=== PATIENT | male | born 1960 | race Caucasian/White ===

== ENCOUNTER 2021-07-04 06:06 | Day surgery (SDC) | payer OTHER ==
[~2021-07-04] VITALS: Ht 172.7 cm; Wt 104.3 kg
[~2021-07-04 06:06] MED LIST: HYD2I IM; MULT1CAP35 PO; TRAM50TA2 PO; ZOLP10TA6 PO
[2021-07-04] MEDS ORDERED: ceFAZolin 1GM/50ML 100 ML IV ONE (06:55)
[2021-07-04] MEDS ORDERED: LIDOCAINE 1%-Mpf/Epinephrine 1:200,000 ONE (07:25)
[2021-07-04] MEDS ORDERED: BUPIVACAINE 0.25% INJ 50ML VIAL ONE (07:25)
[2021-07-04] MEDS ORDERED: VANCOMYCIN HCL 1000 MG VL ONE (07:26)
[2021-07-04] MEDS ORDERED: fentaNYL CITRATE 5 ML ONE (07:36)
[2021-07-04] MEDS ORDERED: MIDAZOLAM HCL 2MG/2ML 2ml VIAL (1mg/ml) ONE (07:36)
[2021-07-04] MEDS ORDERED: LIDOCAINE 2% (LOCAL ANESTH.) PF 5ml SDV ONE (07:41)
[2021-07-04] MEDS ORDERED: PROPOFOL 10 MG/ML 20 ML IV ONE ×2 (07:41→08:31)
[2021-07-04] MEDS ORDERED: ONDANSETRON HCL 4 MG/2 ML VIAL ONE (07:41)
[2021-07-04] MEDS ORDERED: HYDROmorphone HCL 2 MG/ML VL ONE (07:44)
[2021-07-04] MEDS ORDERED: ONDANSETRON HCL 4 MG/2 ML VIAL IV PRN (08:30)
[2021-07-04] MEDS: HYDROmorphone HCL 2 MG/ML VL IV PRN ×2 (09:20→09:38)
[2021-07-04 10:00] VITALS: BP 117/65
== END 2021-07-04 10:10 | disposition home or self-care (01) ==
LOC: SUR 06:06
PROVIDERS: ATTEND Anesthesiology Pain Medicine
DX: M54.5 Low back pain (principal); Z45.49 Encounter for adjustment and management of other implanted nervous system device; M51.16 Intervertebral disc disorders with radiculopathy, lumbar region; M48.061 Spinal stenosis, lumbar region without neurogenic claudication; M51.36 Other intervertebral disc degeneration, lumbar region; G47.00 Insomnia, unspecified; J45.909 Unspecified asthma, uncomplicated; Z98.890 Other specified postprocedural states; Z79.899 Other long term (current) drug therapy; Z20.822 Contact with and (suspected) exposure to COVID-19
CPT/HCPCS: 62362; 62370; C1772; J0690; J1170; J2001; J2250; J2405; J2704; J3010; J3370; J3490; U0003

== ENCOUNTER 2025-05-23 17:30 | Inpatient (IN) | payer OTHER ==
[~2025-05-23] VITALS: Ht 175.3 cm; Wt 93.1 kg
--- NOTE | 2025-05-23 17:51 | ED.PDOC ---
HPI (NEURO) HPI Comments 64-year-old male brought in by EMS presents with a chief complaint of accidental overdose to Dilaudid through his Dilaudid pump in his abdominal wall. Per EMS, patients called 911 after finding patient in bed with AMS. Patient was given 2mg of Narcan by EMS and is now alert and able to speak and answer questions. Patient reports that his Dilaudid pump in his right abdomen was refilled this morning at his Pain Management facility. Patient reports that one time before in the past, his pump leaked and he had the same symptoms as he did today and was prescribed Narcan by his doctor. Patient states that although the Narcan has helped him, he still is experiencing dry mouth and some slight lightheadedness. Patient mentions that his Dilaudid pump is refilled every 2 months. Patient has a prescription of Narcan but he has not used it yet. PMHx: Chronic Back Pain PSHx: Left Shoulder Repair, Right Shoulder Repair HPI: Poor Historian. REVIEW OF SYSTEMS: All symptoms have resolved prior to my evaluation CONSTITUTIONAL: Denies acute: fever, diaphoresis, chills, generalized weakness. HEAD: Denies acute: headache, photophobia Eyes: Denies acute: Double vision, vision loss, eye pain, eye discharge. EARS: Denies acute: tinnitus, hearing loss, ear discharge, ear pain, THROAT: Denies acute: sore throat, swelling, difficulty swallowing , pain with swallowing, change in voice. NECK: Denies acute: neck pain, neck swelling, stiff neck. HEART: Denies acute : chest pain, palpitations, LUNGS: Denies acute: SOB, wheezing, cough, hemoptysis ABDOMEN: Denies acute: abdominal pain, Nausea, Vomiting, diarrhea, melena , hematemesis, hematochezia SKIN: Denies acute: rash, redness, lesions, itchiness. EXTREMITIES: Denies acute: calf pain, numbness, tingling, weakness, denies pain in extremity. Denies acute: Low back pain. Neuro: Denies acute: focal neurological deficit, motor or sensory focal neurological deficit, tremors, seizure like activity, confusion, dizziness, change in mental status, loss of bowel or bladder function, cauda equina like symptoms. : Denies acute: dysuria, hematuria, flank pain, increase in urinary frequency. PSYCH: Denies acute: hallucination, suicidal ideation, homicidal ideation. PHYSICAL EXAM: General: ----no----acute distress, awake and alert. Head: normocephalic, atraumatic. Neck: supple, trachea is midline, no swelling. Throat: Normal phonation. Eyes:, no erythema, no purulent discharge, no proptosis, no icterus. Heart: regular rate, regular rhythm, no significant murmur appreciated. Lungs: no apparent respiratory distress, Able to speak in full sentences. No wheezing, no rhonchi, no crackles. No stridors Clear to auscultation bilaterally. Abdomen: non tender to palpation, non distended, soft, no guarding, no rebound, + bowel sounds. Neuro: Awake, Alert, oriented to name, self, situation, follows commands GCS=15. Speech is normal. Skin: no petechia, no purpura, no cyanosis, non-pale, not jaundice. Lower extremities: --no - Pitting edema no deformity, no focal swelling, no calf TTP. Makes eye contact. moves all four extremities. Face: no apparent facial droop. ED COURSE: DISCLAIMER: This medical document was created using an electronic medical record system with voice recognition software and computerized dictation system. Although this document has been carefully reviewed, there might still be some phonetic and t ypographical errors. Occasional wrong-word or "sound-alike" substitutions may have occurred due to the inherent limitations of voice recognition software. These areas are purely typographical due to imperfections of the software programs and do not reflect any compromise in the patient's medical care. Please read the chart carefully and recognize, using context, where these substitutions have occurred. Time Seen by MD: 17:36 Reviewed Notes: Medications, Allergies Information Source: Patient, Emergency Med Personnel Mode of Arrival: EMS Past Medical History Past Medical History (Other): CHRONIC BACK PAIN Family History Family History: Reviewed,noncontributory to illness Social History Smoker: Non-Smoker Alcohol: Denies ETOH Use Drugs: Denies Drug Use Lives In: Home Was a procedure done? Was a procedure done?: No Differential Diagnosis (SZ) Seizure: N/A General Weakness: Anemia, CVA, Dehydration, Dysrhythmia, Electrolyte imbalance, Encephalopathy, Guillain-Valmeyer, Hypoglycemia, Hypotension, Hypovolemia, Labyrinthitis, Meniere's disease, Myasthenia gravis, Myocardial infarction, Pulmonary embolus, Renal failure, Repiratory failure, TIA, VBI, Vertigo: central, Vertigo: peripheral, Vestibular neuronitis X-Ray, Labs, Meds, VS Vital Signs Date Time Temp Pulse Resp B/P (MAP) Pulse Ox O2 Delivery O2 Flow Rate FiO2 05/23/25 17:45 98.2 95 17 145/90 96 98.2 Lab Test 05/23/25 19:42 05/23/25 18:45 05/23/25 17:53 Range/Units Troponin I High Sensitivity < 3 L < 3 L </=54 ng/L White Blood Count 10.0 4.4-10.8 10^3/uL Red Blood Count 5.02 4.5-5.90 10^6/uL Hemoglobin 11.6 L 13.5-17.5 g/dL Hematocrit 36.0 L 41.0-53.0 % Mean Corpuscular Volume 71.7 L 80.0-100.0 fL Mean Corpuscular Hemoglobin 23.1 L 28.0-32.0 pg Mean Corpuscular Hemoglobin Concent 32.2 32.0-36.0 g/dL Red Cell Distribution Width 15.7 H 11.8-14.3 % Platelet Count 318 140-450 10^3/uL Mean Platelet Volume 7.5 6.9-10.8 fL Neutrophils (%) (Auto) 94.4 H 37.0-80.0 % Lymphocytes (%) (Auto) 3.5 L 10.0-50.0 % Monocytes (%) (Auto) 1.8 0.0-12.0 % Eosinophils (%) (Auto) 0.0 0.0-7.0 % Basophils (%) (Auto) 0.3 0.0-2.0 % Neutrophils # (Auto) 9.4 H 1.6-8.6 10 ^3/uL Lymphocytes # (Auto) 0.4 0.4-5.4 10 ^3/uL Monocytes # (Auto) 0.2 0-1.3 10 ^3/uL Eosinophils # (Auto) 0 0-0.8 10 ^3/uL Basophils # (Auto) 0 0-0.2 10 ^3/uL Nucleated Red Blood Cells 0.0 % Sodium Level 137 136-145 mmol/L Potassium Level 4.9 3.5-5.1 mmol/L Chloride Level 105 98-107 mmol/L Carbon Dioxide Level 23 20-31 mmol/L Anion Gap 9 5-15 Blood Urea Nitrogen 18 9-23 mg/dL Creatinine 1.14 0.700-1.30 mg/dL Glomerular Filtration Rate Calc 73 >90 mL/min BUN/Creatinine Ratio 15.8 10.0-20.0 Serum Glucose 163 H 74-106 mg/dL Lactic Acid Level 1.9 0.4-2.0 mmol/L Calcium Level 9.3 8.7-10.4 mg/dL Total Bilirubin 0.5 0.2-1.0 mg/dL Aspartate Amino Transferase (AST) 29 13-40 U/L Alanine Aminotransferase (ALT) 36 7-40 U/L Alkaline Phosphatase 77 46-116 U/L B-Type Natriuretic Peptide 39.66 0-100 pg/mL Total Protein 6.9 5.7-8.2 g/dL Albumin 4.5 3.2-4.8 g/dL POC Glucose 175 H 70-106 mg/dl PATIENT: BRYANT LOPEZ JACCT: [id number]: [id number] : 1960 LOC: ER ROOM / BED: / AGE / SEX: 64 / M ADM STATUS: REG ER SERVICE 46 ORDERING PHYSICIAN: JARED MOE DO PROCEDURE(s): CXRP - CHEST PORTABLE REASON: sob/ ORDER NUMBER(s): [id number], ACCESSION NUMBER(s): [id number] CHEST RADIOGRAPH Indication: sob/ Technique: Single frontal view of the chest was obtained Comparison: None FINDINGS: Lines and Tubes: None Lungs: No focal consolidation. Pleura: No effusion. No pneumothorax. Cardiomediastinal contours: Unremarkable Bones: No acute osseous abnormality. IMPRESSION: 1. No acute cardiopulmonary disease. HS:Y ATED BY: PRETTY LUIS Jr., DO DICTATED DATE/TIME: 05/23/251908 SIGNED BY: PRETTY LUIS Jr., DO SIGNED DATE/TIME: 05/23/251908 Time of 1ST Reevaluation: 18:06 Reevaluation 1ST: Unchanged Time of 2ND Reevaluation: 22:11 (The case was discussed with the admitting team (HPI, physical exam, labs and diagnostic tests that were available at the time of disposition, ED course, treatment plan) on the phone. They agreed to come and evaluate the patient and make the appropriate disposition. I recommended admission to the hospital for observation to make sure he does not collapse until we rule out male functioning of the Dilaudid pump. He may require a Narcan drip. 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 ) Patient Education/Counseling: Diagnosis, Treatment Family Education/Counseling: Diagnosis, Treatment Comments MDM: patient presented with the above HPI.--altered level of consciousness----workup was initiated. patient was found with the above mentioned diagnosis. the following medications were ordered: please refer to order lists of meds and tests obtained by myself Dr. Moe. Patient ED course and VS have been stabilized. Patient has been reassessed in the ED and remained in a stable condition. Pertinent incidental findings were discussed with the patient and/or family. Patient/family voices understanding and is agreeable with plan. Patient has been observed in the ED adequate length of time to insure improvement/stability. Escalation of care considered: Consideration of escalation to observation or admission Patient is likely getting a higher doses of Dilaudid since his recent pump refill. Patient required at least two doses of Narcan to returned to his baseline. Patient was ADMITTED to the medicine team for further evaluation and treatment of their presentation. All the reports of any imaging studies that were ordered by myself were reviewed by myself. 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 Electronically submitted by Nii Coleman ([email or web address]). I personally scribed for JARED MOE DO ([email or web address]) on 05/23/25 at 19:22. Electronically submitted by Nii Coleman ([email or web address]). JARED MOE DO May 23, 2025 17:50
[2025-05-23] MEDS: SODIUM CHLORIDE 0.9% 1,000 ML IV ONE (18:47)
[2025-05-23] MEDS: ONDANSETRON HCL 4 MG/2 ML VIAL IV ONE (18:55)
[2025-05-23 19:10] LABS: Hematocrit 36.0 % (41.0-53.0); Hemoglobin 11.6 g/dL (13.5-17.5); Mean Corpuscular Hemoglobin 23.1 pg (28.0-32.0); Mean Corpuscular Volume 71.7 fL (80.0-100.0); Nucleated Red Blood Cells % 0.0 %
--- NOTE | 2025-05-23 19:10 | DVH ---
CHEST RADIOGRAPH Indication: sob/ Technique: Single frontal view of the chest was obtained Comparison: None FINDINGS: Lines and Tubes: None Lungs: No focal consolidation. Pleura: No effusion. No pneumothorax. Cardiomediastinal contours: Unremarkable Bones: No acute osseous abnormality. IMPRESSION: 1. No acute cardiopulmonary disease. HS:Y
[2025-05-23] MEDS: NALOXONE HCL 1MG/ML 2ML SYRINGE IV ONE (19:15)
[2025-05-23 19:29] LABS: Alanine Aminotransferase 36 U/L (7-40); Albumin 4.5 g/dL (3.2-4.8); Alkaline Phosphatase 77 U/L (46-116); Anion Gap 9 (5-15); BUN/Creatinine Ratio 15.8 (10.0-20.0); Blood Urea Nitrogen 18 mg/dL (9-23); Calcium 9.3 mg/dL (8.7-10.4); Carbon Dioxide 23 mmol/L (20-31); Chloride 105 mmol/L (98-107); Potassium 4.9 mmol/L (3.5-5.1); Sodium 137 mmol/L (136-145); Total Protein 6.9 g/dL (5.7-8.2)
[2025-05-23 19:30] LABS: Bilirubin, Total 0.5 mg/dL (0.2-1.0)
[2025-05-23 19:34] LABS: Glucose 163 mg/dL (74-106)
[2025-05-23] MEDS ORDERED: DOCUSATE SOD 100 MG CAP PO PRN (23:15)
[2025-05-23] MEDS ORDERED: ONDANSETRON HCL 4 MG/2 ML VIAL IV PRN (23:15)
[2025-05-23] MEDS ORDERED: ACETAMINOPHEN 325 MG TAB PO PRN (23:15)
[2025-05-23] MEDS ORDERED: MORPHINE SULFATE INJ 2 MG/ml SYRG IV PRN (23:15)
[2025-05-23] MEDS ORDERED: NITROGLYCERIN 0.4 MG SL TAB SL PRN (23:15)
[2025-05-24] VITALS (8 sets, daily range): BP systolic 99–145; BP diastolic 47–90; PULSE 47–72; RESP 10–18; TEMP 98.8; O2SAT 95–99
[2025-05-24] MEDS: SODIUM CHLORIDE 0.9% 1,000 ML IV SCH (00:54)
--- NOTE | 2025-05-24 01:17 | DVHHP2 ---
SHAUNA HASSAN SOLUTION MAKER 05/24/25 0117: History of Present Illness Reason for Visit: Opiate overdose History of Present Illness 64-year-old male with past medical history of chronic back pain, permanent pain pump implant infusing Dilaudid presents with complaints of altered mental status x1 day. Patient endorsed he had his pain pump refill today with Dilaudid, which occurs every 2 months. Pain pump was refilled by pain management Dr. Sy gallegos. Patient endorses it was normal procedure no changes made to his dosing. When he arrived home he was not feeling well waiting for his to come home. She noted him to be acting abnormal. Breathing was abnormal. Which prompted the to call EMS. EN route to the hospital EMS gave him 2 doses of Narcan. Which improved mentation. Once arrived in the emergency department was given another dose of Narcan. At this time patient states he still feels off. Patient's endorses pinpoint pupils are not normal for the patient. During the emergency department evaluation CBC is unremarkable, CMP was unremarkable checks x-ray had no acute cardiopulmonary disease. At this time patient denies fevers, chills, dizziness, syncope, shortness of breath, chest pain, palpitations, leg swelling. Musculoskeletal: Chronic low back pain Smoke: No ALCOHOL: none Drugs: None Lives: with Family Review of Systems Constitutional: Yes: Weakness; No: Fever, Chills, Sweats, Malaise, Other Eyes: No: Pain, Vision change, Conjunctivae inflammation, Eyelid inflammation, Other, Redness ENT: No: Ear pain, Ear discharge, Nose pain, Nose discharge, Nose congestion, Mouth pain, Mouth swelling, Throat pain, Throat swelling, Other Respiratory: No: Cough, Dry, Shortness of breath, SOB with excertion, Wheezing, Hemoptysis, Pleuritic Pain, Sputum, Wheezing, Other Cardiovascular: No: Chest Pain, Palpitations, Orthopnea, Paroxysmal Noc. Dyspnea, Edema, Lt Headedness, Other Gastrointestinal: Nausea; No: Vomiting, Abdominal Pain, Diarrhea, Constipation, Melena, Hematochezia, Other Genitourinary: No Dysuria, No Frequency, No Incontinence, No Hematuria, No Retention, No Other Musculoskeletal: No: other, neck pain, shoulder pain, arm pain, back pain, hand pain, leg pain, foot pain Neurological: Incoordination; No: Weakness, Numbness, Change in speech, Confusion, Seizures, Other Allergies: Coded Allergies: Hydrocodone (Verified Allergy, Unknown, 05/23/25) Medications Current Medications Medications Dose Ordered Sig/Symone Route Start Time Stop Time Status Last Admin Dose Admin Sodium Chloride 1,000 ml @ 100 mls/hr Q10H IV 05/23/25 23:15 Docusate Sodium 100 mg BIDPRN PRN PO 05/23/25 23:15 Acetaminophen 650 mg Q6HP PRN PO 05/23/25 23:15 UNV Ondansetron HCl 4 mg Q4HP PRN IV 05/23/25 23:15 Enoxaparin Sodium 40 mg DAILY SC 05/24/25 10:00 Nitroglycerin 0.4 mg Q5MINP PRN SL 05/23/25 23:15 Morphine Sulfate 2 mg Q30M PRN IV 05/23/25 23:15 UNV Naloxone HCl 0.4 mg Q1HP PRN IV 05/23/25 23:15 Exam Vital Signs Vital Signs Date Time Temp Pulse Resp B/P (MAP) Pulse Ox O2 Delivery O2 Flow Rate FiO2 05/23/25 17:45 98.2 95 17 145/90 96 98.2 General Appearance: Alert, Oriented X3, Cooperative, mild distress HEENT: Atraumatic, EOMI, Other (Pinpoint pupils bilaterally 3 mm) Respiratory: Clear to auscultation, Normal air movement Cardiovascular: Regular rate, Normal S1, Normal S2 Abdominal: Normal bowel sounds, Soft, No tenderness Extremities: No clubbing, No cyanosis, No edema, Normal pulses Skin: No rashes Neuro: Normal speech, Strength at 5/5 X4 ext Psych/Mental Status: Mental status NL, Mood NL Labs/Xrays Labs Test 05/23/25 19:42 05/23/25 18:45 05/23/25 17:53 Range/Units Troponin I High Sensitivity < 3 L </=54 ng/L White Blood Count 10.0 4.4-10.8 10^3/uL Red Blood Count 5.02 4.5-5.90 10^6/uL Hemoglobin 11.6 L 13.5-17.5 g/dL Hematocrit 36.0 L 41.0-53.0 % Mean Corpuscular Volume 71.7 L 80.0-100.0 fL Mean Corpuscular Hemoglobin 23.1 L 28.0-32.0 pg Mean Corpuscular Hemoglobin Concent 32.2 32.0-36.0 g/dL Red Cell Distribution Width 15.7 H 11.8-14.3 % Platelet Count 318 140-450 10^3/uL Mean Platelet Volume 7.5 6.9-10.8 fL Neutrophils (%) (Auto) 94.4 H 37.0-80.0 % Lymphocytes (%) (Auto) 3.5 L 10.0-50.0 % Monocytes (%) (Auto) 1.8 0.0-12.0 % Eosinophils (%) (Auto) 0.0 0.0-7.0 % Basophils (%) (Auto) 0.3 0.0-2.0 % Neutrophils # (Auto) 9.4 H 1.6-8.6 10 ^3/uL Lymphocytes # (Auto) 0.4 0.4-5.4 10 ^3/uL Monocytes # (Auto) 0.2 0-1.3 10 ^3/uL Eosinophils # (Auto) 0 0-0.8 10 ^3/uL Basophils # (Auto) 0 0-0.2 10 ^3/uL Nucleated Red Blood Cells 0.0 % Sodium Level 137 136-145 mmol/L Potassium Level 4.9 3.5-5.1 mmol/L Chloride Level 105 98-107 mmol/L Carbon Dioxide Level 23 20-31 mmol/L Anion Gap 9 5-15 Blood Urea Nitrogen 18 9-23 mg/dL Creatinine 1.14 0.700-1.30 mg/dL Glomerular Filtration Rate Calc 73 >90 mL/min BUN/Creatinine Ratio 15.8 10.0-20.0 Serum Glucose 163 H 74-106 mg/dL Lactic Acid Level 1.9 0.4-2.0 mmol/L Calcium Level 9.3 8.7-10.4 mg/dL Total Bilirubin 0.5 0.2-1.0 mg/dL Aspartate Amino Transferase (AST) 29 13-40 U/L Alanine Aminotransferase (ALT) 36 7-40 U/L Alkaline Phosphatase 77 46-116 U/L B-Type Natriuretic Peptide 39.66 0-100 pg/mL Total Protein 6.9 5.7-8.2 g/dL Albumin 4.5 3.2-4.8 g/dL POC Glucose 175 H 70-106 mg/dl SEPSIS Sepsis Screen Date sepsis recognized/suspect: May 23, 2025 Time Sepsis recognized/suspect: 1744 Recent Procedure: No On Antibiotic Therapy: No Respiratory Rate >20: No Heart Rate >90: Yes Temp<36 C (96.8 F) or >38.3 C: No SBP <90 or MAP <65 mmHG: No New Acute Mental Status Change: No Is the patient on CPAP, BIPAP,: No Physician Orders Surgical Specialist (05/23/25 ) Urinalysis (05/23/25 17:44) Chest Portable (05/23/25 17:47) Electrocardigram (05/23/25 17:44) Admit (05/23/25 23:13) Code Status (05/23/25 23:13) Vital Signs .PER UNIT PROTOCOL (05/23/25 23:13) Review Orders With Adm.Md (05/23/25 23:13) Encourage Activity As Tolerate (05/23/25 23:13) Consistent Carb(Ccho)Diabetes (05/24/25 Breakfast) Sodium Chloride 0.9% (05/23/25 23:15) Oxygen By Face Mask (05/23/25 23:13) Docusate Sodium Capsule (Colace Capsule) (05/23/25 23:15) Acetaminophen Tablet (Tylenol Tablet) (05/23/25 23:15) Notify Md Of Changes From Base (05/23/25 23:13) Advance Directive (05/23/25 23:13) Basic Metabolic Panel (05/24/25 05:00) Basic Metabolic Panel (05/25/25 05:00) Basic Metabolic Panel (05/26/25 05:00) Complete Blood Count (05/24/25 05:00) Complete Blood Count (05/25/25 05:00) Complete Blood Count (05/26/25 05:00) Patient Condition (05/23/25 23:13) Allergies (05/23/25 23:13) Ondansetron Hcl (Zofran) (05/23/25 23:15) Enoxaparin Sodium (Lovenox) (05/24/25 10:00) Nitroglycerin Sublingual (Ntrostat Subli (05/23/25 23:15) Morphine Sulfate Injection (05/23/25 23:15) Stat Ekg For Chest Pain (05/23/25 23:13) Notify Md Of Changes From Base (05/23/25 23:13) Check Out Clerk For 24 Hours (05/23/25 23:13) Emergency Dysrhythmia Protocol (05/23/25 23:13) Rhythm Strips Once Every Shift (05/23/25 23:13) Oxygen By Nasal Cannula (05/23/25 23:13) * Pain Managment Consult (05/23/25 23:13) Communication Order (05/23/25 23:13) Naloxone Hcl (Narcan) (05/23/25 23:15) Vital Signs Date Time Temp Pulse Resp B/P (MAP) Pulse Ox O2 Delivery O2 Flow Rate FiO2 05/23/25 17:45 98.2 95 17 145/90 96 98.2 Laboratory Tests Test 05/23/25 18:45 Lactic Acid Level 1.9 mmol/L (0.4-2.0) White Blood Count 10.0 10^3/uL (4.4-10.8) Medications Medications Dose Ordered Sig/Symone Route Start Time Stop Time Status Last Admin Dose Admin Naloxone HCl 2 mg ONCE ONCE IV 05/23/25 19:15 05/23/25 19:16 DC 05/23/25 19:15 2 MG Ondansetron HCl 4 mg ONCE ONCE IV 05/23/25 19:00 05/23/25 19:01 DC 05/23/25 18:55 4 MG Sodium Chloride 1,000 ml @ 1,000 mls/hr Q1H ONCE IV 05/23/25 17:45 05/23/25 18:44 DC 05/23/25 18:47 1,000 MLS/HR Assessment/Plan Assessment/Plan Unintentional opiate overdose Hx pain pump implant Hx chronic back pain Plan Admit telemetry Consult painter and decorator IVF Bronchodilators. As needed supplemental O2 to maintain oxygen saturation greater than 93%. Narcan as needed GI PPX Protonix/DVT PPX Lovenox Plan discussed with: Patient, Spouse, Son My Orders Orders - SHAUNA HASSAN NP Procedure Category Date Status Time Admit ADMIT 05/23/25 Transmitted 23:13 Code Status CODE 05/23/25 Transmitted 23:13 Vital Signs JOSEFINA 05/23/25 In Process 23:13 Review Orders With JOSEFINA 05/23/25 In Process Adm. 23:13 Encourage Activity As JOSEFINA 05/23/25 In Process Tolerate 23:13 Consistent DIET 05/24/25 Transmitted Carb(Ccho)Diabetes Breakfast Sodium Chloride 0.9% PHA 05/23/25 In Process 23:15 Oxygen By Face Mask RT 05/23/25 Transmitted 23:13 Docusate Sodium PHA 05/23/25 In Process Capsule (Colace 23:15 Acetaminophen Tablet PHA 05/23/25 Pending (Tylenol Tablet) 23:15 Notify Of Changes [facility] 05/23/25 In Process From Base 23:13 Advance Directive JOSEFINA 05/23/25 In Process 23:13 Basic Metabolic Panel LAB 05/24/25 Logged 05:00 Basic Metabolic Panel LAB 05/25/25 Verified 05:00 Basic Metabolic Panel LAB 05/26/25 Verified 05:00 Complete Blood Count LAB 05/24/25 Logged 05:00 Complete Blood Count LAB 05/25/25 Verified 05:00 Complete Blood Count LAB 05/26/25 Verified 05:00 Patient Condition ORDERS 05/23/25 Transmitted 23:13 Allergies JOSEFINA 05/23/25 In Process 23:13 Ondansetron Hcl PHA 05/23/25 In Process (Zofran) 23:15 Enoxaparin Sodium PHA 05/24/25 In Process (Lovenox) 10:00 Nitroglycerin PHA 05/23/25 In Process Sublingual (Ntrostat 23:15 Morphine Sulfate PHA 05/23/25 Pending Injection 23:15 Stat Ekg For Chest [facility] 05/23/25 In Process Pain 23:13 Notify Of Changes [facility] 05/23/25 In Process From Base 23:13 Check Out Clerk For [facility] 05/23/25 In Process 24 Hours 23:13 Emergency Dysrhythmia [facility] 05/23/25 In Process Protocol 23:13 Rhythm Strips Once JOSEFINA 05/23/25 In Process Every Shift 23:13 Oxygen By Nasal RT 05/23/25 Transmitted Cannula 23:13 * Pain Managment CONS 05/23/25 Transmitted Consult 23:13 Communication Order ORDERS 05/23/25 Transmitted 23:13 Naloxone Hcl (Narcan) PHA 05/23/25 In Process 23:15 Date of Service: May 24, 2025 Billing Provider: CHARLES OLIVA MD Common Visit Codes: NOT BILLABLE CHARLES OLIVA MD 05/24/25 1533: Review of Systems Allergies: Coded Allergies: Hydrocodone (Verified Allergy, Unknown, 05/23/25) Additional Comments Additional Comments Additional Comments 64-year-old male with a known history of chronic back pain status post pain pump for years, recently pain pump was exchanged presented to the hospital with altered mental status found to have 1. Acute toxic encephalopathy suspect malfunctioning of pump/drug overdose 2. Opiate drug overdose 3. Chronic back pain 4. Chronic insomnia 5. BPH -patient's respiratory rate was between 8-12, started on Narcan drip, patient is status post multiple doses of Narcan but still remained confused. -upgrade to ICU for Narcan drip. Plan of care discussed with the patient's patient's at bedside. SHAUNA HASSAN NP May 24, 2025 01:17 CHARLES OLIVA MD May 24, 2025 15:33
[2025-05-24] MEDS ORDERED: ALBUTEROL SULF 2.5 MG/0.5ML(0.5%) NEB SOLN NEB PRN (01:30)
[2025-05-24 05:28] LABS: Nucleated Red Blood Cells % 0.0 %
[2025-05-24 05:31] LABS: Calcium 9.2 mg/dL (8.7-10.4); Chloride 102 mmol/L (98-107); Hematocrit 34.1 % (41.0-53.0); Hemoglobin 11.1 g/dL (13.5-17.5); Mean Corpuscular Hemoglobin 23.1 pg (28.0-32.0); Mean Corpuscular Volume 70.7 fL (80.0-100.0); Potassium 4.4 mmol/L (3.5-5.1)
[2025-05-24 05:32] LABS: Anion Gap 9 (5-15); Carbon Dioxide 25 mmol/L (20-31); Sodium 136 mmol/L (136-145)
[2025-05-24 05:37] LABS: BUN/Creatinine Ratio 16.9 (10.0-20.0); Blood Urea Nitrogen 20 mg/dL (9-23)
[2025-05-24 05:51] LABS: Glucose 139 mg/dL (74-106)
--- NOTE | 2025-05-24 07:00 | DVH ---
INDICATION: pain pump leak. TECHNIQUE: Multiple real-time sonographic images of the abdomen were obtained. COMPARISON: None FINDINGS: There is no fluid collection or mass in the right lower quadrant superficial soft tissues. IMPRESSION: 1. No fluid collection or mass in the right lower quadrant superficial soft tissues.
[2025-05-24] MEDS: NALOXONE HCL 0.4 MG/ML VIAL IV PRN (07:03)
[2025-05-24 08:05] LABS: Urine Protein, UAD TRACE (Negative)
[2025-05-24] MEDS: ENOXAPARIN SOD 40 MG/0.4 ML SYRINGE SC SCH (10:55)
[2025-05-24] MEDS ORDERED: TAMS-35 PO (12:23)
[2025-05-24] MEDS ORDERED: CALC200T2 PO (12:23)
[2025-05-24] MEDS ORDERED: ZINC100T5 PO (12:24)
[2025-05-24] MEDS ORDERED: GARL200T PO (12:24)
[2025-05-24] MEDS ORDERED: CHOL400C7 PO (12:25)
[2025-05-24] MEDS ORDERED: PYRI50TA71 PO (12:25)
[2025-05-24] MEDS: NALOXONE HCL 2 MG in DEXTROSE 495 ML IV ONE (15:25)
[2025-05-25 02:15] VITALS: PULSE 48; O2SAT 97
[2025-05-25 06:04] LABS: Hematocrit 32.5 % (41.0-53.0); Hemoglobin 10.7 g/dL (13.5-17.5); Mean Corpuscular Hemoglobin 23.5 pg (28.0-32.0); Mean Corpuscular Volume 71.6 fL (80.0-100.0); Nucleated Red Blood Cells % 0.0 %
[2025-05-25 06:37] VITALS: O2SAT 95
[2025-05-25 06:38] LABS: Anion Gap 7 (5-15); Carbon Dioxide 28 mmol/L (20-31); Chloride 105 mmol/L (98-107); Potassium 4.3 mmol/L (3.5-5.1); Sodium 140 mmol/L (136-145)
[2025-05-25 06:39] LABS: Calcium 8.9 mg/dL (8.7-10.4)
[2025-05-25 06:43] LABS: Glucose 90 mg/dL (74-106)
[2025-05-25 06:44] LABS: BUN/Creatinine Ratio 14.7 (10.0-20.0); Blood Urea Nitrogen 17 mg/dL (9-23)
[2025-05-25 13:25] VITALS: BP 122/63; PULSE 56; RESP 14; TEMP 98.8; O2SAT 94
--- NOTE | 2025-05-25 13:47 | DVHDS2 ---
Discharge Summary Date of Admission May 23, 2025 at 23:13 Date of Discharge: May 25, 2025 Labs/Diagnostic Data: Laboratory Results Test 05/25/25 04:50 05/24/25 07:43 05/23/25 19:42 05/23/25 18:45 White Blood Count 7.6 10^3/uL (4.4-10.8) Red Blood Count 4.54 10^6/uL (4.5-5.90) Hemoglobin 10.7 g/dL (13.5-17.5) Hematocrit 32.5 % (41.0-53.0) Mean Corpuscular Volume 71.6 fL (80.0-100.0) Mean Corpuscular Hemoglobin 23.5 pg (28.0-32.0) Mean Corpuscular Hemoglobin Concent 32.8 g/dL (32.0-36.0) Red Cell Distribution Width 15.7 % (11.8-14.3) Platelet Count 243 10^3/uL (140-450) Mean Platelet Volume 7.9 fL (6.9-10.8) Neutrophils (%) (Auto) 68.4 % (37.0-80.0) Lymphocytes (%) (Auto) 20.8 % (10.0-50.0) Monocytes (%) (Auto) 8.4 % (0.0-12.0) Eosinophils (%) (Auto) 1.9 % (0.0-7.0) Basophils (%) (Auto) 0.5 % (0.0-2.0) Neutrophils # (Auto) 5.2 10 ^3/uL (1.6-8.6) Lymphocytes # (Auto) 1.6 10 ^3/uL (0.4-5.4) Monocytes # (Auto) 0.6 10 ^3/uL (0-1.3) Eosinophils # (Auto) 0.1 10 ^3/uL (0-0.8) Basophils # (Auto) 0 10 ^3/uL (0-0.2) Nucleated Red Blood Cells 0.0 % Sodium Level 140 mmol/L (136-145) Potassium Level 4.3 mmol/L (3.5-5.1) Chloride Level 105 mmol/L (98-107) Carbon Dioxide Level 28 mmol/L (20-31) Anion Gap 7 (5-15) Blood Urea Nitrogen 17 mg/dL (9-23) Creatinine 1.16 mg/dL (0.700-1.30) Glomerular Filtration Rate Calc 71 mL/min (>90) BUN/Creatinine Ratio 14.7 (10.0-20.0) Serum Glucose 90 mg/dL (74-106) Calcium Level 8.9 mg/dL (8.7-10.4) Urine Color Yellow (Yellow) Urine Clarity Clear (Clear) Urine pH 5.5 (5.0-9.0) Urine Specific [place] 1.028 (1.001-1.035) Urine Protein Trace (Negative) Urine Ketones Negative (Negative) Urine Blood Negative /uL (Negative) Urine Nitrite Negative (Negative) Urine Bilirubin Negative (Negative) Urine Urobilinogen Normal mg/dL (Negative) Urine Leukocyte Esterase Negative /uL (Negative) Urine RBC 2 /hpf (0 - 3) Urine Microscopic WBC 2 /HPF (0-3) Urine Squamous Epithelial Cells Few /hpf (<5) Urine Bacteria None seen /hpf (None Seen) Urine Mucus Few (None Seen) Urine Glucose Normal mg/dL (Normal) Troponin I High Sensitivity < 3 ng/L (</=54) Lactic Acid Level 1.9 mmol/L (0.4-2.0) Total Bilirubin 0.5 mg/dL (0.2-1.0) Aspartate Amino Transferase (AST) 29 U/L (13-40) Alanine Aminotransferase (ALT) 36 U/L (7-40) Alkaline Phosphatase 77 U/L (46-116) B-Type Natriuretic Peptide 39.66 pg/mL (0-100) Total Protein 6.9 g/dL (5.7-8.2) Albumin 4.5 g/dL (3.2-4.8) Test 05/23/25 17:53 POC Glucose 175 mg/dl (70-106) Other Laboratory Tests 05/25/25 04:50 Brief Hx & Hospital Course: 64-year-old male with a known history of chronic back pain status post pain pump for years, recently pain pump was exchanged presented to the hospital with altered mental status found to have acute toxic encephalopathy suspected secondary to malfunctioning of pump or drug overdose. Eventually patient was admitted patient has received multiple doses of Narcan. Eventually Narcan drip was recommended patient was kept in ICU on Narcan drip. Patient's today is fully awake alert and oriented and stable to be discharged with a close follow up as an outpatient with the PCP and [employer]. Narcan nasal spray will be prescribed. Condition at Discharge: Stable Final Diagnosis/Problems List 64-year-old male with a known history of chronic back pain status post pain pump for years, recently pain pump was exchanged presented to the hospital with altered mental status found to have 1. Acute toxic encephalopathy suspect malfunctioning of pump/drug overdose 2. Opiate drug overdose 3. Chronic back pain 4. Chronic insomnia 5. BPH -patient's respirat Discharge Disposition: Home SNF Discharge Will this Physician continue t: No Discharge Instruct/Medications Diet: Cardiac 2g Na,low cholest Activity: See Comment Activity comment: Moving, no signing legal documents, no playing on machinery while on pain pump. Follow Up/Referral: Follow up with the PCP and [employer] in one week. Medications: Narcan as prescribed. Scheduled Naloxone HCl (Narcan), 4 MG NA [employer] Tamsulosin Hcl (Flomax), 1 CAP PO DAILY, (Reported) Zolpidem Tartrate (Zolpidem Tartrate), 10 MG PO QHSP, (Reported) Miscellaneous Medications Allium Sativan Extract (Garlic), 200 MG PO, (Reported) Calcium Citrate (Calcium Citrate), 200 MG PO, (Reported) Cholecalciferol (Vitamin D), 400 UNIT PO, (Reported) Hydromorphone Hcl (Dilaudid Injection), 7.322 MG IM, (Reported) Multiple Vitamins W/ Minerals (Bariatric Multivitamins/I), 1 CAP PO, (Reported) Pyridoxine Hcl (Vitamin B 6), 50 MG PO, (Reported) Tramadol Hcl (Tramadol Hcl), 50 MG PO, (Reported) Zinc Gluconate (Zinc), 100 MG PO, (Reported) Discharge Statement: "Patient was advised to return to the ER or call 911 if any headaches, dizziness, shortness of breath, chest pain, abdominal pain, bleeding, fevers, or worsening of medical condition. Patient was counseled about treatment plan, medications, possible side effects, patientverbalized understanding. All questions were answered to the best of my ability. This discharge took greater then 30 minutes in planning, reviewing documentation, counseling the patient, and discussing with other team members." ASSESSMENT ASSESSMENT Assessment 64-year-old male with a known history of chronic back pain status post pain pump for years, recently pain pump was exchanged presented to the hospital with altered mental status found to have 1. Acute toxic encephalopathy suspect malfunctioning of pump/drug overdose 2. Opiate drug overdose 3. Chronic back pain 4. Chronic insomnia 5. BPH -patient's respirat Date of Service: May 25, 2025 Billing Provider: CHARLES OLIVA MD Common Visit Codes: NOT BILLABLE CHARLES OLIVA MD May 25, 2025 13:47
[2025-05-25] MEDS ORDERED: NALO4SPR2 (15:08)
== END 2025-05-25 14:50 | disposition home or self-care (01) | DRG 91 ==
LOC: ER 17:30 → EDBD 17:42 → OVERFLOW 23:13
PROVIDERS: ADMIT Nurse Practitioner Family; ATTEND Nurse Practitioner Family
DX: T85.615A Breakdown (mechanical) of other nervous system device, implant or graft, initial encounter (principal); G92.8 Other toxic encephalopathy; T40.2X1A Poisoning by other opioids, accidental (unintentional), initial encounter; N40.0 Benign prostatic hyperplasia without lower urinary tract symptoms; G89.29 Other chronic pain; F51.04 Psychophysiologic insomnia; Z88.5 Allergy status to narcotic agent; Y92.89 Other specified places as the place of occurrence of the external cause
CPT/HCPCS: 36415; 71045; 76705; 80048; 80053; 81001; 82962; 83605; 83880; 84484; 85025; 96361; 96374; 96375; G0378; J2405